=== PATIENT | female | born 1980 ===

== ENCOUNTER 2021-10-10 09:08 | Day surgery (SDC) | payer OTHER ==
[~2021-10-10 09:08] MED LIST: Lactated Ringers 1,000 ML IV SCH; Lidocaine 1%/Sod Bicarbonate in NS 8.4% 1 ML Syringe IDERM PRN; Sodium Chloride 0.9% 10 ML Syringe FLUSH PRN; Sodium Chloride 0.9% 10 ML Syringe FLUSH SCH
[2021-10-10] MEDS ORDERED: Acetaminophen 325 MG Tab PO ONE (09:40)
[2021-10-10] MEDS ORDERED: Gabapentin 300 MG Cap PO ONE (09:40)
[2021-10-10] MEDS ORDERED: Clindamycin Phosphate in D5W 900 MG in Premix Bag 1 BAG IV ONE ×2 (09:41)
[2021-10-10] MEDS ORDERED: Lidocaine 1% with EPINEPHrine 1:100,000 10 ML MDV ONE ×2 (09:55→11:00)
[2021-10-10] MEDS ORDERED: Bupivacaine 0.5%/EPINEPHrine 1:200,000 50 ML MDV ONE (09:55)
[2021-10-10] MEDS ORDERED: Midazolam 1 MG/ML 2 ML SDV ONE (10:52)
[2021-10-10] MEDS ORDERED: Propofol 200 MG/20 ML SDV ONE (10:53)
[2021-10-10] MEDS ORDERED: Lidocaine 1% 4 ML ONE (10:53)
[2021-10-10] MEDS ORDERED: fentaNYL 250 MCG/5 ML SDV ONE (10:53)
[2021-10-10] MEDS ORDERED: Rocuronium 50 MG/5 ML Vial ONE ×2 (10:55→12:16)
[2021-10-10] MEDS ORDERED: Lactated Ringers 1,000 ML ONE ×2 (11:45→11:55)
[2021-10-10] MEDS ORDERED: Dexamethasone 4 MG/ML 5 ML MDV ONE (11:46)
[2021-10-10] MEDS ORDERED: Ondansetron 4 MG/2 ML SDV ONE (11:46)
[2021-10-10] MEDS ORDERED: Ketorolac 30 MG/ML SDV ONE (12:03)
[2021-10-10] MEDS ORDERED: HYDROmorphone 0.5 MG/0.5 ML Syringe ONE (12:15)
[2021-10-10] MEDS ORDERED: fentaNYL 100 MCG/2 ML SDV ONE (12:26)
[2021-10-10] MEDS ORDERED: Ondansetron 4 MG/2 ML SDV IVPUSH PRN (13:27)
[2021-10-10] MEDS ORDERED: HYDROmorphone 0.5 MG/0.5 ML Syringe IVPUSH PRN (13:27)
[2021-10-10] MEDS ORDERED: fentaNYL 100 MCG/2 ML SDV IVPUSH PRN (13:27)
[2021-10-10] MEDS ORDERED: Acetaminophen/HYDROcodone 325-5 MG Tab PO ONE (14:33)
== END 2021-10-10 16:10 | disposition home or self-care (01) ==
LOC: JD.SDS 09:08
PROVIDERS: ATTEND Surgery
DX: K80.10 Calculus of gallbladder with chronic cholecystitis without obstruction (principal); E03.9 Hypothyroidism, unspecified; E66.01 Morbid (severe) obesity due to excess calories; Z88.1 Allergy status to other antibiotic agents; Z98.890 Other specified postprocedural states; Z87.891 Personal history of nicotine dependence; Z68.41 Body mass index [BMI] 40.0-44.9, adult
CPT/HCPCS: 47562; 81025; A9270; J1100; J1170; J1885; J2250; J2405; J2704; J2710; J3010; J3490; J7120; 00790